=== PATIENT | male | born 1960 | race Two or more races ===

== ENCOUNTER 2017-05-05 17:20 | Emergency (ER) | payer OTHER | END 2017-05-05 17:47 | disposition home or self-care (01) | LOC: CED 17:20 | DX: M70.51 Other bursitis of knee, right knee (principal); V89.2XXA Person injured in unspecified motor-vehicle accident, traffic, initial encounter; Y92.410 Unspecified street and highway as the place of occurrence of the external cause | CPT/HCPCS: 99283 ==